=== PATIENT | male | born 1965 | race Caucasian/White ===

== ENCOUNTER 2017-04-16 10:56 | Day surgery (SDC) | payer OTHER ==
[~2017-04-16 10:56] MED LIST: ASPIRIN81 M2 PO; CARVEDILOL3.125 MG PO; RENAL VITAMIN0.8 MG PO; RENVELA800 MG PO; VELTASSA16.8 GM PO
== END 2017-04-16 13:31 | disposition home or self-care (01) ==
LOC: CATH 10:56
DX: T82.858A Stenosis of other vascular prosthetic devices, implants and grafts, initial encounter (principal); Y83.2 Surgical operation with anastomosis, bypass or graft as the cause of abnormal reaction of the patient, or of later complication, without mention of misadventure at the time of the procedure; E11.22 Type 2 diabetes mellitus with diabetic chronic kidney disease; N18.6 End stage renal disease; Z99.2 Dependence on renal dialysis
CPT/HCPCS: 87641; C1725; C1769; C1894; J1644; J2250; J3010

== ENCOUNTER → 2017-05-04 | Outpatient (CLI) | payer OTHER | END | disposition home or self-care (01) | LOC: AMB 09:30 | PROC: 02PYX3Z Removal of Infusion Device from Great Vessel, External Approach (ICD-10-PCS; principal; 2017-05-04) | DX: Z45.2 Encounter for adjustment and management of vascular access device (principal); N18.6 End stage renal disease ==

== ENCOUNTER 2017-10-10 07:35 | Day surgery (SDC) | payer OTHER | END 2017-10-10 10:35 | disposition home or self-care (01) | LOC: CATH 07:35 | PROC: 037Y3ZZ Dilation of Upper Artery, Percutaneous Approach (ICD-10-PCS; principal; 2017-10-10) | PROC: 057Y3ZZ Dilation of Upper Vein, Percutaneous Approach (ICD-10-PCS; principal; 2017-10-10) | DX: T82.858A Stenosis of other vascular prosthetic devices, implants and grafts, initial encounter (principal); E11.22 Type 2 diabetes mellitus with diabetic chronic kidney disease; N18.6 End stage renal disease; Z99.2 Dependence on renal dialysis; Y83.2 Surgical operation with anastomosis, bypass or graft as the cause of abnormal reaction of the patient, or of later complication, without mention of misadventure at the time of the procedure | CPT/HCPCS: 87641; C1725; C1769; C1894; J1644 ==